=== PATIENT | male | born 1970 | race Caucasian/White ===

== ENCOUNTER → 2019-08-01 | Outpatient (CLI) | payer OTHER ==
--- NOTE | 2019-08-01 11:25 | RADIOLOGY REPORT (SQ) ---
EXAM DESCRIPTION: U/S SCROTUM W/O DOPPLER COMPLETED DATE/TIME: 08/01/2019 8:25 am REASON FOR STUDY: TESTICULAR LUMP COMPARISON: None. TECHNIQUE: Static and realtime rojo scale imaging of the scrotum and testes. Selected color Doppler and spectral images recorded to document blood flow. LIMITATIONS: None. FINDINGS: RIGHT: TESTICLE: Normal size, 4.4 x 2.8 x 1.8 cm in size. Normal echotexture. Normal blood flow. No mass. EPIDIDYMIS: Normal. HYDROCELE OR VARICOCELE: No. HERNIA OR EXTRA-TESTICULAR MASS: No. OTHER: No other significant finding. LEFT: TESTICLE: Normal size, 4.5 x 2.9 x 1.7 cm in size. Normal echotexture. Normal blood flow. No mass. EPIDIDYMIS: Mildly enlarged, hypoechoic, epididymal head 2 x 1.7 cm in size. Question epididymitis v ersus complex epididymal cyst with debris HYDROCELE OR VARICOCELE: No. HERNIA OR EXTRA-TESTICULAR MASS: No. OTHER: No other significant finding. IMPRESSION: No sonographic evidence for testicular torsion or primary testicular mass Asymmetric enlargement left epididymal head, question epididymitis or complex epididymal cyst with de bris TECHNICAL DOCUMENTATION: JOB ID: [id number] [employer]- All Rights Reserved Reading location - IP/workstation name: [email or web address]
== END ==
LOC: RAD 07:10
PROVIDERS: ATTEND Family Medicine
DX: N50.89 Other specified disorders of the male genital organs (principal)
CPT/HCPCS: 76870